=== PATIENT | male | born 1995 | race Caucasian/White ===

== ENCOUNTER 2020-09-11 15:37 | Emergency (ER) | payer MEDICAID ==
[~2020-09-11] VITALS: Ht 177.8 cm; Wt 72.7 kg
[2020-09-11 15:48] VITALS: BP 153/97
[2020-09-11] MEDS ORDERED: ketorolac tromethamine 15mg/ml inj. IM ONE (16:30)
[2020-09-11] MEDS ORDERED: PRED20TA PO (16:33)
[2020-09-11] MEDS ORDERED: CYCL-1 PO (16:38)
== END 2020-09-11 17:10 | disposition home or self-care (01) ==
LOC: ER 15:38
DX: S39.012A Strain of muscle, fascia and tendon of lower back, initial encounter (principal); M54.30 Sciatica, unspecified side; M79.604 Pain in right leg; R33.9 Retention of urine, unspecified; Z79.899 Other long term (current) drug therapy; X58.XXXA Exposure to other specified factors, initial encounter; Y93.89 Activity, other specified; Y92.89 Other specified places as the place of occurrence of the external cause; Y99.8 Other external cause status
CPT/HCPCS: 96372; 99283; J1885